=== PATIENT | female | born 1990 | race Caucasian/White ===

== ENCOUNTER 2018-06-21 17:09 | Emergency (ER) | payer OTHER ==
[~2018-06-21] VITALS: Ht 157.5 cm; Wt 46.7 kg
[~2018-06-21 17:09] MED LIST: LISINOPRIL5 MG PO
[2018-06-21] MEDS ORDERED: LAMICTAL100 MG PO (17:44)
[2018-06-21] MEDS ORDERED: TRAZODONE HCL50 MG PO (17:44)
[2018-06-21] MEDS ORDERED: PROZAC20 MG PO (17:44)
[2018-06-21] MEDS ORDERED: NEURONTIN 300300 M1 PO (17:45)
[2018-06-21 20:58] LABS: HEMATOCRIT 42.4 % (37.0-47.0); HEMOGLOBIN 14.1 gm/dL (12.0-15.0); MCH 30.8 pg (26.0-34.0); MCHC 33.4 g/dL (28.0-37.0); MCV 92.2 fL (80.0-100.0); MPV 7.1 fl. (7.2-11.1); RBC 4.6 mil/uL (4.20-5.00); RDW-CV 13.2 % (10.5-14.5); WBC 12.7 thou/uL (4.0-11.0)
[2018-06-21 21:06] LABS: CALCIUM 8.9 mg/dL (8.5-10.1); CREATININE 0.7 mg/dL (0.6-1.3); POTASSIUM 3.6 mmol/L (3.5-5.1)
[2018-06-21 21:07] LABS: ALBUMIN 4.2 g/dL (3.4-5.0)
[2018-06-21 21:12] LABS: URINE BILIRUBIN NEGATIVE (Negative); URINE BLOOD 1+ (Negative); URINE CLARITY HAZY; URINE COLOR YELLOW; URINE GLUCOSE-RANDOM NEGATIVE (Negative); URINE KETONES 1+ (Negative); URINE LEUKOCYTES NEGATIVE (Negative); URINE NITRITE NEGATIVE (Negative); URINE PROTEIN 1+ (Negative); URINE UROBILINOGEN 0.2 E.U./dl (0.2-1.0)
[2018-06-21 21:15] LABS: AMP/METHAMP POSITIVE (Negative); BARBITURATES Negative (Negative); BENZODIAZEPINES POSITIVE (Negative); COCAINE Negative (Negative); METHADONE Negative (Negative); OPIATES Negative (Negative); PCP Negative (Negative); THC Negative (Negative)
[2018-06-21 21:16] LABS: SALICYLATE < 2.8 mg/dL (2.8-20.0)
[2018-06-21 21:17] LABS: ACETAMINOPHEN < 2 ug/mL (10-30); ALCOHOL < 10 mg/dL (<10)
[2018-06-21 21:27] LABS: BACTERIA None Seen /HPF (None Seen); CASTS None Seen /LPF (None Seen); MUCUS 4-6 Moderate strn/LPF (None Seen); SQUAMOUS 0-3 Few /LPF (0-3); URINE RBC 0-2 Rare /HPF (0-2); URINE WBC None Seen /HPF (0-5)
[2018-06-21 21:28] LABS: CRYSTALS None Seen /LPF (None Seen)
[2018-06-21 22:03] LABS: TOTAL BILIRUBIN 0.8 mg/dL (<0.1-1.0); TOTAL PROTEIN 7.8 g/dL (6.4-8.2)
[2018-06-22 02:05] VITALS: BP 124/90
== END 2018-06-22 02:05 | disposition home or self-care (01) ==
LOC: M.ERS 17:09
PROVIDERS: Personal Emergency Response Attendant
DX: F23 Brief psychotic disorder (principal)